=== PATIENT | female | born 1935 | race Caucasian/White ===

== ENCOUNTER 2017-03-11 17:31 | Emergency (ER) | payer OTHER ==
[~2017-03-11] VITALS: Ht 167.6 cm; Wt 68.0 kg
[~2017-03-11 17:31] MED LIST: DICL75 PO; GLIP5TAB15 PO; GLUCTAB PO; LOSA50TA PO; METHO500 PO; MEVA40TA6 PO; WARF-60 PO; XYZA5TAB2 PO
[2017-03-11 17:40] VITALS: BP 142/77; PULSE 58; RESP 16; TEMP 98.5; O2SAT 97
[2017-03-11] MEDS ORDERED: SITA100T PO (18:07)
[2017-03-11] MEDS ORDERED: METF500T PO (18:07)
[2017-03-11] MEDS ORDERED: LOVA40TA PO (18:07)
[2017-03-11] MEDS ORDERED: ASPI325T PO (18:07)
[2017-03-11] MEDS ORDERED: DONE10TA7 PO (18:07)
[2017-03-11] MEDS ORDERED: LOSA50TA2 PO (18:07)
[2017-03-11] MEDS ORDERED: AUGM875T3 PO (18:12)
--- NOTE | 2017-03-11 18:12 | PD ---
HPI Chief Complaint: Bite or Sting Time Seen by Provider: 18:00 Travel History International Travel<30 days: No Contact w/Intl Traveler<30days: No Traveled to known affect area: No History of Present Illness HPI 81-year-old female presents emergency department for evaluation of a cat bite right hand. Patient reports [facility] she attempted to restrain the animal and it bit her right hand at the base of the thumb. She reports aching pain at the site of the puncture wound, nonradiating, no aggravating or alleviating factors, severity 4 out of 10. She has normal sensation and full range of motion of the thumb. No active bleeding. Tetanus status unknown. PFSH Past Medical History Cardiovascular Problems: Yes (AFIB) High Cholesterol: Yes Diabetes: Yes Patient Takes Glucophage: Yes Diminished Hearing: No Hypertension: Yes Immunizations Current: Yes Tubal Ligation: Yes Past Surgical History Cholecystectomy: Yes Tonsillectomy: Yes Social History Alcohol Use: No Tobacco Use: No Substance Use: No Allergies-Medications (Allergen,Severity, Reaction): Coded Allergies: Codeine (Verified Allergy, Mild, 03/11/17) Reported Meds & Prescriptions Reported Meds & Active Scripts Active Diclofenac Sodium 75 Mg Tab 75 Mg PO BID PRN Robaxin 500 Mg Tab (Methocarbamol) 500 Mg Tab 500 Mg PO TID PRN Reported Warfarin Sodium 6 mg (Warfarin Sodium) 6 Mg Tab 7 Mg PO DAILY Xyzal (Levocetirizine) 5 Mg Tab 5 Mg PO DAILY Losartan Potassium 50 MG (Losartan Potassium) 50 Mg Tab 50 Mg PO DAILY Glipizide Er (Glipizide) 5 Mg Tab 5 Mg PO BID Glucophage (Metformin HCl) 500 Mg Tab 1,000 Mg PO BID Mevacor (Lovastatin) 40 Mg Tab 40 Mg PO HS Review of Systems Except as stated in HPI: all other systems reviewed are Neg Physical Exam Narrative GENERAL: Well-nourished, well-developed patient. SKIN: Focused skin assessment warm/dry. 2 small Puncture wound wounds right hand HEAD: Normocephalic. EYES: No scleral icterus. No injection or drainage. NECK: Supple, trachea midline. No JVD or lymphadenopathy. CARDIOVASCULAR: Regular rate and rhythm without murmurs, gallops, or rubs. RESPIRATORY: Breath sounds equal bilaterally. No accessory muscle use. GASTROINTESTINAL: Abdomen soft, non-tender, nondistended. MUSCULOSKELETAL: No cyanosis, or edema. Right hand: 2 small puncture wounds at the base of the right thumb. Patient has full range of motion of the digit. Normal sensation. BACK: Nontender without obvious deformity. No CVA tenderness. Data Data Last Documented VS Vital Signs Date Time Temp Pulse Resp B/P Pulse Ox O2 Delivery O2 Flow Rate FiO2 03/11/17 17:40 98.5 58 16 142/77 97 MDM Medical Decision Making Medical Screen Exam Complete: Yes Emergency Medical Condition: Yes Differential Diagnosis Puncture wound, laceration, animal bite Narrative Course 81-year-old female percent emergency department for evaluation of cat bite to right thumb. On exam patient has 2 puncture wounds the base of the right thumb. No evidence of retained foreign body. She has full range of motion and normal sensation of the digit. The wound was extensively irrigated. Patient placed on antibiotics instructed she needed close follow-up. Diagnosis Primary Impression: Cat bite of hand Qualified Code: S61.451A - Cat bite of hand, right, initial encounter Referrals: Primary Care Physician Additional Instructions: Taking antibiotics as prescribed. Change the dressing daily. Follow up with her primary care doctor for recheck of the wound in 2 days. Return to emergency department if he have new or worsening symptoms such as increasing pain, redness, swelling, fever or chills. Scripts Amoxicillin-Clavulanate (Augmentin)875-125 Mg Tab1 Tab PO BID #20 TAB Prov:Esperanza Bernard 03/11/17 Disposition: 01 DISCHARGE HOME Condition: Stable Esperanza Bernard Mar 11, 2017 18:12
[2017-03-11] MEDS ORDERED: TETANUS/DIPHTHERIA TOXOID ADULT 0.5 ML VIAL IM ONE (18:15)
== END 2017-03-11 18:35 | disposition home or self-care (01) ==
LOC: PHEFT 17:31
DX: S61.451A Open bite of right hand, initial encounter (principal); E78.00 Pure hypercholesterolemia, unspecified; I48.91 Unspecified atrial fibrillation; Z23 Encounter for immunization; E11.9 Type 2 diabetes mellitus without complications; W55.01XA Bitten by cat, initial encounter; Y93.F9 Activity, other caregiving; Y92.29 Other specified public building as the place of occurrence of the external cause; Y99.8 Other external cause status
CPT/HCPCS: 90471; 90714